=== PATIENT | female | born 1955 | race Caucasian/White ===

== ENCOUNTER 2017-07-16 09:46 | Emergency (ER) | payer SELFPAY ==
[~2017-07-16] VITALS: Ht 167.6 cm; Wt 77.0 kg
[2017-07-16 09:47] VITALS: BP 155/80; PULSE 76; RESP 14; TEMP 97.8; O2SAT 97
--- NOTE | 2017-07-16 11:10 | PD ---
HPI Chief Complaint: Skin Problem Time Seen by Provider: 10:55 Travel History International Travel<30 days: No Contact w/Intl Traveler<30days: No Traveled to known affect area: No History of Present Illness HPI 61-year-old [place] female patient presents to the ER today with a right arm skin lesion that she has noticed over the last 3 and half weeks. She has been camping and she has just noticed it here and she states it has not changed. She denies any itching. She denies any injury to the area. She states that she is [place] and had talked to her insurance was told to come here in order to get into see a occupational therapy manager. Modifying Factors: None Associated Signs & Symptoms: Evaluation for right arm skin lesion Risk Factors: None History Past Medical Histgory Medical History: Denies Significant Hx Tetanus Vaccination: > 5 Years Social History Alcohol Use: No Tobacco Use: No Allergies-Medications (Allergen,Severity, Reaction): Coded Allergies: No Known Allergies (Unverified , 07/16/17) Reported Meds & Prescriptions Reported Meds & Active Scripts Active No Active Prescriptions or Reported Medications Review of Systems Except as stated in HPI: all other systems reviewed are Neg Physical Exam Narrative GENERAL: Well-nourished, well-developed elderly white female patient in no acute distress. SKIN: Focused skin assessment warm/dry. There is a mildly erythematous half centimeter circular area of desquamation on the skin which is nontender to palpation with no surrounding erythema or underlying fluctuance. HEAD: Normocephalic. EYES: No scleral icterus. No injection or drainage. NECK: Supple, trachea midline. No JVD or lymphadenopathy. Supple. MUSCULOSKELETAL: No cyanosis, or edema. BACK: Nontender without obvious deformity. No CVA tenderness. Data Data Last Documented VS Vital Signs Date Time Temp Pulse Resp B/P (MAP) Pulse Ox O2 Delivery O2 Flow Rate FiO2 07/16/17 09:47 97.8 76 14 155/80 (105) 97 MDM Medical Screen Exam Complete: Yes Emergency Medical Condition: Yes Differential Diagnosis Skin lesion: Eczema versus ringworm versus squamous cell cancer versus insect bite Narrative Course This lesion has been going on for 3-1/2 weeks and just does not appear to be an acute emergency, no significant signs of overlying infection. It has not changed in 3 1/2 weeks. Patient may need to follow-up with a occupational therapy manager for further evaluation. She can try [id number] steroid medications. Return for any worsening in redness, pain, and as needed. The plan was discussed with her and she states understanding. This does not appear to be an acute emergency and she should return should there be any worsening in condition for further evaluation. Primary Impression: Arm skin lesion, right Additional Instructions: Dr. Laura Mariee Address: [address] [place] [address] Phone: Scripts No Active Prescriptions or Reported Meds Disposition: EDGO-ED USE ONLY Condition: Stable Fabio Traore MD Jul 16, 2017 11:10
== END 2017-07-16 11:22 | disposition left against medical advice (07) ==
LOC: NEPD 09:46
DX: L98.9 Disorder of the skin and subcutaneous tissue, unspecified (principal)
CPT/HCPCS: 99281